=== PATIENT | male | born 1940 | race Caucasian/White ===

== ENCOUNTER 2017-10-29 16:15 | Emergency (ER) | payer OTHER ==
[2017-10-29 16:18] VITALS: BP 199/62; PULSE 48; RESP 20; TEMP 97.1; O2SAT 99
[2017-10-29] MEDS ORDERED: SODIUM CHLORIDE 0.9% FLUSH 10 ML FLUSH IVF PRN (16:45)
[2017-10-29] MEDS ORDERED: SODIUM CHLOR 0.9% 1000 ML INJ 1,000 ML IV ONE (16:45)
[2017-10-29] MEDS ORDERED: PROMETHAZINE INJ 25 MG/ML VIAL IM ONE (16:45)
[2017-10-29 16:50] VITALS: O2SAT 98
--- NOTE | 2017-10-29 16:51 | PD ---
HPI Chief Complaint: GI Complaint Time Seen by Provider: 16:36 Travel History International Travel<30 days: No Contact w/Intl Traveler<30days: No Traveled to known affect area: No History of Present Illness HPI This patient complains of nausea and vomiting. He says he felt fine this morning and he went for an outpatient MRI at about 10:30. It was done with contrast. He thinks the contrast is made him nauseous. He is had multiple episodes of vomiting since that time. He is not having any abdominal pain or fever or diarrhea. He called paramedics who brought him in. He vomited just prior to my arrival in the room and now feels a bit better after vomiting. Severity is moderate. Duration about 5 hours. No alleviating factors. He says that symptoms are exacerbated by contrast administration. He does not have rash or hives or shortness of breath or swelling. PFSH Past Medical History Cardiovascular Problems: Yes (OPEN HEART) Past Surgical History Cardiac Surgery: Yes (OPEN HEART) Social History Alcohol Use: No Tobacco Use: No Substance Use: No Allergies-Medications (Allergen,Severity, Reaction): Coded Allergies: No Known Allergies (Unverified , 10/29/17) Reported Meds & Prescriptions Reported Meds & Active Scripts Active Zofran (Ondansetron HCl) 4 Mg Tab 4 Mg PO Q6HR PRN Review of Systems General / Constitutional: No: Fever Eyes: No: Visual changes HENT: No: Headaches Cardiovascular: No: Chest Pain or Discomfort Respiratory: No: Shortness of Breath Gastrointestinal: Positive: Nausea, Vomiting, No: Abdominal Pain Genitourinary: No: Dysuria Musculoskeletal: No: Pain Skin: No Rash Neurologic: No: Weakness Psychiatric: No: Depression Endocrine: No: Polydipsia Hematologic/Lymphatic: No: Easy Bruising Physical Exam Narrative GENERAL: Well-nourished, well-developed patient with nausea and vomiting. SKIN: Focused skin assessment reveals no rash and nodules. Skin is Warm and dry. HEAD: Atraumatic. Normocephalic. EYES: Pupils equal and round. No scleral icterus. No injection or drainage. ENT: No nasal bleeding or discharge. Mucous membranes pink and moist. NECK: Trachea midline. No JVD. CARDIOVASCULAR: Regular rate and rhythm. No murmur appreciated. RESPIRATORY: No accessory muscle use. Clear to auscultation. Breath sounds equal bilaterally. GASTROINTESTINAL: Abdomen soft, non-tender, nondistended. Hepatic and splenic margins not palpable. MUSCULOSKELETAL: No obvious deformities. No clubbing. No cyanosis. No edema. NEUROLOGICAL: Awake and alert. No obvious cranial nerve deficits. Motor grossly within normal limits. Normal speech. PSYCHIATRIC: Appropriate mood and affect; insight and judgment normal. Data Data Last Documented VS Vital Signs Date Time Temp Pulse Resp B/P (MAP) Pulse Ox O2 Delivery O2 Flow Rate FiO2 10/29/17 18:33 48 20 138/46 (76) 10/29/17 16:50 98 10/29/17 16:18 97.1 Orders Orders Complete Blood Count With Diff (10/29/17 16:42) Basic Metabolic Panel (Bmp) (10/29/17 16:42) Iv Access Insert/Monitor (10/29/17 16:42) Ecg Monitoring (10/29/17 16:42) Oximetry (10/29/17 16:42) NPO (10/29/17 16:42) Sodium Chloride 0.9% Flush (Ns Flush) (10/29/17 16:45) Sodium Chlor 0.9% 1000 Ml Inj (Ns 1000 M (10/29/17 16:45) Promethazine Inj (Phenergan Inj) (10/29/17 16:45) Labs Laboratory Tests Test 10/29/17 17:00 10/29/17 17:25 White Blood Count 9.0 TH/MM3 Red Blood Count 4.16 MIL/MM3 Hemoglobin 13.0 GM/DL Hematocrit 37.3 % Mean Corpuscular Volume 89.5 FL Mean Corpuscular Hemoglobin 31.1 PG Mean Corpuscular Hemoglobin Concent 34.8 % Red Cell Distribution Width 12.8 % Platelet Count 217 TH/MM3 Mean Platelet Volume 7.6 FL Neutrophils (%) (Auto) 92.5 % Lymphocytes (%) (Auto) 4.8 % Monocytes (%) (Auto) 1.7 % Eosinophils (%) (Auto) 0.1 % Basophils (%) (Auto) 0.9 % Neutrophils # (Auto) 8.3 TH/MM3 Lymphocytes # (Auto) 0.4 TH/MM3 Monocytes # (Auto) 0.2 TH/MM3 Eosinophils # (Auto) 0.0 TH/MM3 Basophils # (Auto) 0.1 TH/MM3 CBC Comment DIFF FINAL Differential Comment Blood Urea Nitrogen 20 MG/DL Creatinine 0.89 MG/DL Random Glucose 124 MG/DL Calcium Level 8.4 MG/DL Sodium Level 138 MEQ/L Potassium Level 4.0 MEQ/L Chloride Level 105 MEQ/L Carbon Dioxide Level 27.9 MEQ/L Anion Gap 5 MEQ/L Estimat Glomerular Filtration Rate 83 ML/MIN MDM Medical Decision Making Medical Screen Exam Complete: Yes Emergency Medical Condition: Yes Medical Record Reviewed: Yes Differential Diagnosis Dehydration, allergy to contrast, adverse reaction to contrast, gastroenteritis Narrative Course I have reviewed the patient's electronic medical record. IV placed and IV fluid given 1 L normal saline I gave him Phenergan IM injection He received Zofran in route and reports it did nothing Lab studies sent Abdomen is soft and benign and nontender CBC metabolic profiles are normal On reevaluation he feels well Blood pressure is now 130s systolic His bradycardia is baseline for him Zofran prescribed to use if needed He will discuss his contrast reaction to his physician but I don't see objective evidence of allergy Diagnosis Primary Impression: Contrast media adverse reaction Qualified Codes: T50.8X5A - Adverse effect of diagnostic agents, initial encounter Additional Impression: Nausea and vomiting Qualified Codes: R11.2 - Nausea with vomiting, unspecified Additional Instructions: The patient was advised to follow up with their physician and return if they worsen. Med/Other Pt SpecificInfo: Prescription(s) given Scripts Ondansetron (Zofran) 4 Mg Tab 4 MG PO Q6HR Y for NAUSEA OR VOMITING, #12 TAB 0 Refills Prov: Mamadou Canales MD 10/29/17 Disposition: DISCHARGE HOME Condition: Stable Mamadou Canales MD Oct 29, 2017 16:51
[2017-10-29 17:07] LABS: AUTOMATED NEUTROPHIL # 8.3 TH/MM3 (1.8-7.7); BASOPHIL # 0.1 TH/MM3 (0-0.2); BASOPHIL % 0.9 % (0.0-2.0); EOSINOPHIL % 0.1 % (0.0-4.0); HEMATOCRIT 37.3 % (39.0-51.0); LYMPH % 4.8 % (9.0-44.0); LYMPHOCYTE # 0.4 TH/MM3 (1.0-4.8); MEAN CELL VOLUME 89.5 FL (80.0-100.0); MEAN CORPUSCULAR HEMOGLOBIN 31.1 PG (27.0-34.0); MEAN CORPUSCULAR HGB CONC 34.8 % (32.0-36.0); MEAN PLATELET VOLUME 7.6 FL (7.0-11.0); MONO % 1.7 % (0.0-8.0); MONOCYTE # 0.2 TH/MM3 (0-0.9); NEUT % 92.5 % (16.0-70.0); PLATELET COUNT 217 TH/MM3 (150-450); RED BLOOD COUNT 4.16 MIL/MM3 (4.50-5.90); RED CELL DISTRIBUTION WIDTH 12.8 % (11.6-17.2)
[2017-10-29 17:41] LABS: BICARBONATE 27.9 MEQ/L (21.0-32.0); CALCIUM 8.4 MG/DL (8.5-10.1)
[2017-10-29 17:45] LABS: CREATININE 0.89 MG/DL (0.60-1.30)
[2017-10-29 18:33] VITALS: BP 138/46; PULSE 48; RESP 20
[2017-10-29] MEDS ORDERED: ZOFR4TAB PO (18:43)
== END 2017-10-29 20:00 | disposition home or self-care (01) ==
LOC: PHED 16:15
DX: T50.8X5A Adverse effect of diagnostic agents, initial encounter (principal); R11.2 Nausea with vomiting, unspecified
CPT/HCPCS: 80048; 85025; 96360; 96361; 96372; 99284; J2550; J7030